=== PATIENT | male | born 1960 | race Caucasian/White ===

== ENCOUNTER 2018-08-18 14:31 | Emergency (ER) | payer OTHER ==
[~2018-08-18] VITALS: Ht 177.8 cm; Wt 93.0 kg
[~2018-08-18 14:31] MED LIST: ACETAMINOPHEN-1 EAC1; AMOXICILLIN875 MG PO; CARAFATE1 GM PO; CEFTIN250 MG PO; CIPROFLOXACIN500 MG PO; CYCLOBENZAPRINE5 MG PO; FLEXERIL10 MG PO; FOLIC ACID-VIT1 EAC1 PO; GABAPENTIN300 MG PO; HYDROCODON-ACE1 EA10 PO; HYDROCODON-ACE1 EA14 PO; HYZAAR 100-251 EACH PO; HYZAAR 50-12.5 T1 EA PO; IBUPROFEN600 MG PO; IBUPROFEN800 MG PO; KETOROLAC TROME10 MG PO; LISINOPRIL10 MG PO; LORAZEPAM1 MG PO; LYRICA100 MG PO; MEDROL4 MG PO; NAPROSYN500 MG PO; NAPROXEN500 MG PO; NEURONTIN100 MG PO; NICOTINE PATCH1 EAC1 TD; NORCO 5-325 TA1 EACH PO; OMEPRAZOLE20 MG PO; OXYCODONE HCL5 M1 PO; OXYCODONE HCL5 MG PO; PEPCID20 MG PO; PEPCID40 MG PO; PERCOCET 7.5-31 EACH PO; PREDNISONE20 MG PO; PRILOSEC20 MG PO; PROMETHAZINE12.5 M1 PO; PROTONIX40 MG PO; SUCRALFATE1 GM PO; TRAMADOL HCL50 MG PO; ULTRAM50 MG PO; VENTOLIN HFA18 GM INH; VISTARIL25 MG PO; XANAX1 MG PO; ZOFRAN ODT4 MG PO; ZOFRAN ODT8 MG SL; ZOFRAN4 MG PO
[2018-08-18] MEDS ORDERED: ZITHROMAX250 MG PO (14:49)
--- OUTSIDE RECORDS SUMMARY | 2018-08-18 16:18 | XMS ---
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 Care History Medical/Surgical 06/06/2018 [facility] - PATIENT HAS AN APT TO ESTABLISH CARE WITH DR CALDWELL ON 06/10/18Wednesday - PATIENT CURRENTLY RESIDES AT [facility] FOR TREATMENT AND CHW IS NOT ABLE TO CONTACT PATIENT DURING TREATMENT. - Patient is currently established with [facility]. If patient is seen in the ED during business hours. Please contact CHWs at [facility]. Care Recommendation: This patient has had 5 or more Emergency Department visits in the last 12 months.\T\nbsp; Patient requires education on the scope and purpose of the ED as an acute care provider not a Primary Care Provider and should not be utilized for chronic conditions.\T\nbsp; These are guidelines and the provider should exercise clinical judgment when providing care. 05/16/2018 [facility] - CHW MET WITH PATIENT IN ED ROOM- - CHW PROVIDED EOCIL INFORMATION AND [employer] INFORMATION FOR LUNCH. - CHW DISCUSSED ED UTILIZATION WITH PATIENT. - CHW MADE A REFERRAL TO [facility] 04/21/2018 [facility] - PATIENT HAS NOT SEEN A PROVIDER IN THE CLINIC SINCE 2014 - PLEASE DIRECT PATIENT TO THE WALK IN CLINIC TO ESTABLISH CARE WITH A PCP. - PATIENT DOES NOT HAVE A PCP- CHW IS UNABLE TO CONTACT PATIENT SINCE THERE IS NOT A WORKING NUMBER FOR PATIENT. - NO PCP LETTER SENT TO PATIENT. - PLEASE REFER PATIENT TO THE WALK IN CLINIC TO SET UP WITH A PCP IF PATIENT IS SEEN IN THE ED FOR NON EMERGENT MEDICAL NEEDS. E.D. VISIT COUNT (12 MO.) 10 [facility] TOTAL 10 NOTE: Visits indicate total known visits. ED/UCC VISIT TRACKING (12 MO.) 08/18/2018 14:31 [facility] [place] TYPE: Emergency COMPLAINT: - CHEST PAIN 06/05/2018 16:15 [facility] [place] TYPE: Emergency COMPLAINT: - CHEST PAIN,L ARM NUMBNESS DIAGNOSES: - Other chest pain - Essential (primary) hypertension - Nicotine dependence, unspecified, uncomplicated - Allergy to seafood - Allergy to other foods - Other salvage determiner (current) drug therapy - Other chest pain - Precordial pain 05/29/2018 11:34 [facility] [place] TYPE: Emergency COMPLAINT: - ABD PAIN DIAGNOSES: - Unspecified abdominal pain - Allergy to seafood - Essential (primary) hypertension - Nicotine dependence, unspecified, uncomplicated 05/17/2018 21:40 [facility] [place] TYPE: Emergency COMPLAINT: - BLOOD IN URINE DIAGNOSES: - Nausea with vomiting, unspecified - Epigastric pain - Alcohol abuse with intoxication, unspecified - Blood alcohol level of 240 mg/100 ml or more 05/16/2018 08:51 [facility] [place] TYPE: Emergency COMPLAINT: - KEEPS PASSING OUT DIAGNOSES: - Allergy status to other drugs, medicaments and biological substances status - Allergy to seafood - Allergy status to narcotic agent status - Syncope and collapse - Allergy status to analgesic agent status - Bronchitis, not specified as acute or chronic - Alcohol abuse, uncomplicated - Essential (primary) hypertension - Nicotine dependence, unspecified, uncomplicated 05/15/2018 10:01 [facility] [place] TYPE: Emergency COMPLAINT: - SHORTNESS OF BREATH DIAGNOSES: - Blood alcohol level of 240 mg/100 ml or more - Allergy status to analgesic agent status - Essential (primary) hypertension - Nicotine dependence, unspecified, uncomplicated - Shortness of breath - Contusion of right eyelid and periocular area, initial encounter - Allergy status to other drugs, medicaments and biological substances status - Unspecified injury of head, initial encounter - Allergy status to narcotic agent status - Alcohol abuse with intoxication, unspecified - Fall on same level, unspecified, initial encounter - Allergy to seafood 05/09/2018 20:59 [facility] [place] TYPE: Emergency COMPLAINT: - VOMITING DIAGNOSES: - Acute bronchitis, unspecified - Allergy status to narcotic agent status - Unspecified fall, initial encounter - Essential (primary) hypertension - Allergy status to analgesic agent status - Allergy status to other drugs, medicaments and biological substances status - Nicotine dependence, unspecified, uncomplicated - Contusion of left hip, initial encounter - Allergy to seafood - Cough 05/05/2018 06:15 [facility] TYPE: Emergency COMPLAINT: - ABD PAIN DIAGNOSES: - Alcoholic gastritis without bleeding - Allergy status to other drugs, medicaments and biological substances status - Allergy status to analgesic agent status - Unspecified abdominal pain - Nicotine dependence, unspecified, uncomplicated - Allergy to seafood - Allergy status to narcotic agent status - Essential (primary) hypertension 04/20/2018 09:21 [facility] TYPE: Emergency COMPLAINT: - BACK/NECK PAIN,NON INJURY DIAGNOSES: - Essential (primary) hypertension - Other chronic pain - Low back pain - Allergy status to analgesic agent status - Allergy to seafood - Allergy status to narcotic agent status 04/08/2018 14:[address] [facility] [place] TYPE: Emergency COMPLAINT: - LOW BACK PAIN,NON INJURY DIAGNOSES: - Allergy to seafood - Nicotine dependence, unspecified, uncomplicated - Allergy status to analgesic agent status - Essential (primary) hypertension - Allergy status to narcotic agent status - Allergy status to other drugs, medicaments and biological substances status - Low back pain INPATIENT VISIT TRACKING (12 MO.) No inpatient visits to display in this time frame [email or web address]
[2018-08-18] MEDS ORDERED: PREDNISONE20 MG PO (17:39)
[2018-08-18] MEDS ORDERED: TRAZODONE HCL50 MG PO (17:39)
--- NOTE | 2018-08-19 07:20 | EKG ---
[facility] [address] [place] [address] Signed Sinus tachycardia Rightward axis Borderline ECG When compared with ECG of 05-JUN-2018 16:17, premature ventricular complexes are no longer present Confirmed by KIMBERLY MERIDA MD ([id number]) on 08/19/2018 7:20:01 AM Electronically Signed By: KIMBERLY MERIDA MD 08/19/18 0720 PATIENT NAME: KALIN LOVE RUI Electrocardiogram DATE OF : 60 PHYSICIAN: KIMBERLY MERIDA MD REPORT #: [id number] REPORT IS CONFIDENTIAL AND NOT TO BE RELEASED WITHOUT AUTHORIZATION
== END 2018-08-18 17:50 | disposition home or self-care (01) ==
LOC: ED 14:31
DX: J40 Bronchitis, not specified as acute or chronic (principal); I10 Essential (primary) hypertension; Z86.19 Personal history of other infectious and parasitic diseases; Z87.891 Personal history of nicotine dependence; Z91.018 Allergy to other foods; Z91.013 Allergy to seafood; Z79.899 Other long term (current) drug therapy
CPT/HCPCS: 71046; 80053; 84484; 85025; 93005; 93010; 94640; 99285-25; J7512

== ENCOUNTER 2018-08-28 14:51 | Emergency (ER) | payer OTHER ==
[~2018-08-28] VITALS: Ht 177.8 cm; Wt 93.0 kg
[~2018-08-28 14:51] MED LIST changes: +TRAZODONE HCL50 MG PO; +ZITHROMAX250 MG PO
--- OUTSIDE RECORDS SUMMARY | 2018-08-28 14:54 | XMS ---
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 Care History Medical/Surgical 06/06/2018 [facility] - PATIENT HAS AN APT TO ESTABLISH CARE WITH DR CALDWELL ON 06/10/18Wednesday - PATIENT CURRENTLY RESIDES AT [facility] FOR TREATMENT AND CHW IS NOT ABLE TO CONTACT PATIENT DURING TREATMENT. - Patient is currently established with [facility]. If patient is seen in the ED during business hours. Please contact CHWs at [facility]. Care Recommendation: This patient has had 5 or more Emergency Department visits in the last 12 months.\T\nbsp; Patient requires education on the scope and purpose of the ED as an acute care provider not a Primary Care Provider and should not be utilized for chronic conditions.\T\nbsp; These are guidelines and the provider should exercise clinical judgment when providing care. 05/16/2018 [facility] - CHW MET WITH PATIENT IN ED ROOM- - CHW PROVIDED Purewire[employer] INFORMATION AND [employer] Touch INFORMATION FOR LUNCH. - CHW DISCUSSED ED UTILIZATION WITH PATIENT. - CHW MADE A REFERRAL TO [facility] 04/21/2018 [facility] - PATIENT HAS NOT SEEN A [...] MEDICAL NEEDS. E.D. VISIT COUNT (12 MO.) 11 [facility] TOTAL 11 NOTE: Visits indicate total known visits. 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 - Other chest pain - Personal history of other infectious and parasitic diseases - Allergy to seafood - Allergy to other foods - Personal history of nicotine dependence 06/05/2018 16:15 [facility] TYPE: Emergency COMPLAINT: - CHEST PAIN,L ARM NUMBNESS DIAGNOSES: - Other chest pain - Essential (primary) hypertension - Nicotine dependence, unspecified, uncomplicated - Allergy to seafood - Allergy to other foods - Other snf (current) drug therapy - Other chest pain [...] status to narcotic agent status 04/08/2018 14:15 [facility] [place] TYPE: Emergency COMPLAINT: - LOW BACK [...] visits to display in this time frame [id number]
[2018-08-28] MEDS ORDERED: ECOTRIN325 MG PO (16:13)
[2018-08-28] MEDS ORDERED: HYDROCHLOROTHIA25 MG PO (16:13)
[2018-08-28] MEDS ORDERED: TRAZODONE HCL50 MG PO (16:54)
--- NOTE | 2018-08-29 07:22 | EKG ---
[facility] [address] [place], [place] [address] Signed Normal sinus rhythm Normal ECG When compared with ECG of 18-AUG-2018 14:33, No significant change was found Confirmed by KIMBERLY MERIDA MD ([id number]) on 08/29/2018 7:21:55 AM Electronically Signed By: KIMBERLY MERIDA MD 08/29/18 0722 PATIENT NAME: KALIN LOVE Electrocardiogram DATE OF : 60 PHYSICIAN: KIMBERLY MERIDA MD REPORT #: [id number] REPORT IS CONFIDENTIAL AND NOT TO BE RELEASED WITHOUT AUTHORIZATION
--- NOTE | 2018-08-29 07:22 | EKG ---
[facility] [address] [place], [place] [address] Signed Normal sinus rhythm Normal ECG When compared with ECG of 28-AUG-2018 14:55, (Unconfirmed) No significant change was found Confirmed by KIMBERLY MERIDA MD ([id number]) on 08/29/2018 7:22:14 AM Electronically Signed By: KIMBERLY MERIDA MD 08/29/18 0722 PATIENT NAME: IVANKALIN FABIAN Electrocardiogram DATE OF : 60 PHYSICIAN: KIMBERLY MERIDA MD REPORT #: [id number] REPORT IS CONFIDENTIAL AND NOT TO BE RELEASED WITHOUT AUTHORIZATION
== END 2018-08-28 16:41 | disposition home or self-care (01) ==
LOC: ED 14:51
DX: R07.89 Other chest pain (principal); I10 Essential (primary) hypertension; Z86.19 Personal history of other infectious and parasitic diseases; Z87.891 Personal history of nicotine dependence; Z91.018 Allergy to other foods; Z91.013 Allergy to seafood; Z79.899 Other long term (current) drug therapy
CPT/HCPCS: 71045; 80053; 83880; 84484; 85025; 93005; 93010; 99285-25

== ENCOUNTER 2018-08-31 17:36 | Emergency (ER) | payer OTHER ==
[~2018-08-31] VITALS: Ht 177.8 cm; Wt 93.0 kg
[~2018-08-31 17:36] MED LIST changes: +ECOTRIN325 MG PO; +HYDROCHLOROTHIA25 MG PO
--- OUTSIDE RECORDS SUMMARY | 2018-08-31 17:38 | XMS ---
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 Care History Medical/Surgical 06/06/2018 [facility] - PATIENT HAS AN APT TO ESTABLISH CARE WITH DR CALDWELL ON 06/10/18Wednesday - PATIENT CURRENTLY RESIDES AT [facility] FOR TREATMENT AND CHW IS NOT ABLE TO CONTACT PATIENT DURING TREATMENT. - Patient is currently established with [facility]. If patient is seen in the ED during business hours. Please contact CHWs at [facility]. Care Recommendation: This patient has had 5 or more Emergency Department visits in the last 12 months.\T\nbsp; Patient requires education on the scope and purpose of the ED as an acute care provider not a Primary Care Provider and should not be utilized for chronic conditions.\T\nbsp; These are guidelines and the provider should exercise clinical judgment when providing care. 05/16/2018 [facility] - CHW MET WITH PATIENT IN ED ROOM- - CHW PROVIDED ScifinitiIL INFORMATION AND IM5 INFORMATION FOR LUNCH. - CHW DISCUSSED ED UTILIZATION WITH PATIENT. - CHW MADE A REFERRAL TO [facility] 04/21/2018 [facility] - PATIENT HAS NOT SEEN A PROVIDER [...] MEDICAL NEEDS. E.D. VISIT COUNT (12 MO[address] 12 [facility] TOTAL 12 NOTE: Visits indicate total known visits. ED/UCC VISIT TRACKING (12 MO.) 08/31/2018 17:37 [facility] TYPE: Emergency COMPLAINT: - LOWER BACK PAIN,NON INJURY 08/28/2018 14:51 [facility] TYPE: Emergency COMPLAINT: - CHEST PAIN DIAGNOSES: - Other chest pain - Chest pain, unspecified - Personal history of other infectious and parasitic diseases - Personal history of nicotine dependence - Allergy to other foods - Essential (primary) hypertension - Other jail (current) drug therapy - Allergy to seafood 08/18/2018 14:31 [facility] TYPE: Emergency COMPLAINT: - CHEST PAIN DIAGNOSES: - Essential (primary) hypertension - Bronchitis, not specified as acute or chronic - Other jail (current) drug therapy - Other chest pain [...] - Allergy to other foods - Other jail (current) drug therapy - Other chest pain [...] visits to display in this time frame [id number]
[2018-08-31] MEDS ORDERED: CYCLOBENZAPRINE10 MG PO (21:50)
[2018-08-31] MEDS ORDERED: DICLOFENAC SODI75 MG PO (21:50)
== END 2018-08-31 22:19 | disposition home or self-care (01) ==
LOC: ED 17:36
DX: M54.5 Low back pain (principal); G89.29 Other chronic pain; I10 Essential (primary) hypertension; Z87.891 Personal history of nicotine dependence; Z91.013 Allergy to seafood; Z91.018 Allergy to other foods; Z79.82 Long term (current) use of aspirin; Z79.899 Other long term (current) drug therapy
CPT/HCPCS: 72131; 96372; 99283-25; J1885

== ENCOUNTER 2018-09-13 18:15 | Emergency (ER) | payer OTHER ==
[~2018-09-13] VITALS: Ht 177.8 cm; Wt 93.0 kg
--- OUTSIDE RECORDS SUMMARY | ~2018-09-13 | XMS | Clinical Summary ---
Demographics + + + | Address | [address] | | | [place] [address] | + + + | Home Phone | | + + + | Preferred Language | Unknown | + + + | Marital Status | | + + + | Confucianism Affiliation | 1013 | + + + | Race | Unknown | + + + | Ethnic Group | Unknown | + + + Author + + + | Author | [facility] | | | and [place] | + + + | Organization | [facility] | | | and [place] | + + + | Address | Unknown | + + + | Phone | Unavailable | + + + Support + + +---------+ + | Name | Relationship | Address | Phone | + + +---------+ + | Guillermina Badillo | ECON | Unknown | | + + +---------+ + Care Team Providers + +------+ + | Care Topographical Engineer Name | Role | Phone | + +------+ + | Pcp, Prov Inactive | PP | | + +------+ + Allergies + + + + + + | Active Allergy | Reactions | Severity | Noted | Comments | | | | | Date | | + + + + + + | Codeine | Nausea And Vomiting | Medium | 08/27/19 | | | | | | 13 | | + + + + + + | Fish-Derived | Itching, Rash | Medium | 04/28/20 | | | Products | | | 15 | | + + + + + + | Morphine | Itching | Medium | 08/27/19 | | | | | | 13 | | + + + + + + | Shellfish | Itching, Rash | Low | 04/28/20 | | | | | | 15 | | + + + + + + Current Medications + + +---------+---------+------+------+-------+ | Prescription | Sig. | Disp. | Refills | Star | End | Statu | | | | | | t | Date | s | | | | | | Date | | | + + +---------+---------+------+------+-------+ | aspirin 81 mg | Take 81 mg by mouth | | | | | Activ | | chewable tablet | Daily. | | | | | e | + + +---------+---------+------+------+-------+ | nicotine | Place 1 patch onto | | | | | Activ | | (NICODERM) 21 mg/24 | the skin every 24 | | | | | e | | hr | hours. | | | | | | + + +---------+---------+------+------+-------+ | pregabalin | Take 1 capsule by | 60 | 3 | 12/2 | | Activ | | (LYRICA) 225 MG | mouth 2 times daily. | capsule | | 2/20 | | e | | capsuleIndications: | | | | 15 | | | | Chronic neck pain, | | | | | | | | Cervical radiculitis | | | | | | | + + +---------+---------+------+------+-------+ | ondansetron | Take 1 tablet by | 10 | 0 | 01/3 | | Activ | | (ZOFRAN ODT) 4 mg | mouth every 8 hours | tablet | | 1/20 | | e | | disintegrating | as needed for | | | 16 | | | | tablet | Nausea. | | | | | | + + +---------+---------+------+------+-------+ | DULoxetine | Take 1 capsule by | 30 | 1 | 02/0 | | Activ | | (CYMBALTA) [address] | mouth Daily. | capsule | | 9/20 | | e | | capsuleIndications: | | | | 16 | | | | Degeneration of | | | | | | | | cervical | | | | | | | | intervertebral disc, | | | | | | | | Chronic neck pain | | | | | | | + + +---------+---------+------+------+-------+ | traMADol (ULTRAM) | take 1 tablet by | 90 | 0 | 02/2 | | Activ | | 50 mg tablet | mouth every 8 hours | tablet | | 2/20 | | e | | | if needed for pain | | | 16 | | | | | MUST LAST 30 DAYS | | | | | | + + +---------+---------+------+------+-------+ | baclofen | Take 1 tablet by | 60 | 1 | 02/2 | | Activ | | (LIORESAL) 10 mg | mouth every 8 hours | tablet | | 3/20 | | e | | tabletIndications: | as needed. | | | 16 | | | | Degeneration of | | | | | | | | cervical | | | | | | | | intervertebral disc, | | | | | | | | Back pain, | | | | | | | | unspecified back | | | | | | | | pain laterality, | | | | | | | | unspecified | | | | | | | | location, Chronic | | | | | | | | neck pain | | | | | | | + + +---------+---------+------+------+-------+ | oxyCODONE | Take 0.5-1 tablet | 30 | 0 | 02/2 | | Activ | | (ROXICODONE) 5 mg | daily as needed | tablet | | 3/20 | | e | | tabletIndications: | (must last 1 month. | | | 16 | | | | Degeneration of | Refills only through | | | | | | | cervical | Dr. Vaughn) | | | | | | | intervertebral disc, | | | | | | | | Back pain, | | | | | | | | unspecified back | | | | | | | | pain laterality, | | | | | | | | unspecified | | | | | | | | location, Chronic | | | | | | | | neck pain | | | | | | | + + +---------+---------+------+------+-------+ | melatonin 3 mg | Take 3 mg by mouth | | | | | Activ | | TABS | nightly. | | | | | e | + + +---------+---------+------+------+-------+ Active Problems + + + | Problem | Noted Date | + + + | Chronic tension-type headache, intractable | 07/19/2015 | + + + | Chronic hepatitis C with hepatic coma (HCC) | 06/03/2015 | + + + | History of substance abuse | 06/03/2015 | + + + | Fatty liver | 06/03/2015 | + + + | Chronic headache | 05/06/2015 | + + + | Depression | 04/24/2015 | + + + | Alcoholism (HCC) | 04/24/2015 | + + + | Tobacco abuse | 04/24/2015 | + + + | Chronic neck pain | 04/24/2015 | + + + | Cavitary lesion of lung | 08/30/2012 | + + + | Back pain | 08/26/2012 | + + + | Muscle spasm | 08/26/2012 | + + + | Hepatitis C, chronic (HCC) | 08/26/2012 | + + + | Degeneration of cervical intervertebral disc | 08/26/2012 | + + + | COPD (chronic obstructive pulmonary disease) (HCC) | 08/26/2012 | + + + | Benign essential hypertension | 08/26/2012 | + + + | Pulmonary nodule | 08/26/2012 | + + + | Insomnia | 08/26/2012 | + + + | Chest wall pain | 08/26/2012 | + + + Resolved Problems + + + + | Problem | Noted | Resolved | | | Date | Date | + + + + | Abdominal pain, generalized | 06/03/20 | | | | 15 | 6 | + + + + | Acute URI | 08/27/19 | | | | 13 | 6 | + + + + | Viral infection | 08/27/19 | | | | 13 | 6 | + + + + | Cough | 08/27/19 | | | | 13 | 6 | + + + + Immunizations + + + + | Name | Dates Previously Given | Next Due | + + + + | BCG | 07/04/2012 | | + + + + | INFLUENZA PF 18 Y OR | 06/24/2012 | | | >,TRIVALENT | | | | RECOMBINANT | | | + + + + | INFLUENZA PF | 05/03/2015 | | | QUAD(PED/ADOL/ADULT) | | | | ,PSKT or VIAL | | | + + + + | TDAP, (ADOL/ADULT) | 07/30/2012 | | + + + + Family History + + +------+ + | Medical History | Relation | Name | Comments | + + +------+ + | Asthma | Mother | | | + + +------+ + | COPD | Mother | | | + + +------+ + + +------+ + + | Relation | Name | Status | Comments | + +------+ + + | Brother | | Alive | | + +------+ + + | Brother | | Alive | | + +------+ + + | Child | | Alive | | + +------+ + + | Child | | Alive | | + +------+ + + | Child | | Alive | | + +------+ + + | Child | | Alive | | + +------+ + + | Child | | Alive | | + +------+ + + | Father | | Other | unknown | + +------+ + + | Mother | | | heart disease | | | | (Age | | | | | 72) | | + +------+ + + | Sister | | Alive | | + +------+ + + Social History + + + +--------+ + | Tobacco Use | Types | Packs/Day | Years | Date | | | | | Used | | + + + +--------+ + | Current Every Day | Cigarettes | 0.25 | 41 | 06/21/1973 - | | Smoker | | | | 06/21/2014 | + + + +--------+ + + +---+---+---+ | Smokeless Tobacco: | | | | | Never Used | | | | + +---+---+---+ + + | Tobacco Cessation: Counseling Given: Yes | | Comments: 1 cig daily | + + + + +---------+ + | Alcohol Use | Drinks/We | oz/Week | Comments | | | ek | | | + + +---------+ + | No | 0 | 0.0 | RECOVERING ALCOHOLIC: Quit 03/01/15 | | | Standard | | | | | drinks or | | | | | | | | | | equivalen | | | | | t | | | + + +---------+ + + + + | Sex Assigned at | Date Recorded | | | | + + + | Not on file | | + + + Last Filed Vital Signs + + + + | Vital Sign | Reading | Time Taken | + + + + | Blood Pressure | 132/90 | 08/13/20151550 PST | + + + + | Pulse | 85 | 08/13/20151550 PST | + + + + | Temperature | 36.8 C (98.3 F) | 08/13/20151550 PST | + + + + | Respiratory Rate | 16 | 08/13/20151550 PST | + + + + | Oxygen Saturation | 97% | 08/13/20151550 PST | + + + + | Inhaled Oxygen | - | - | | Concentration | | | + + + + | Weight | 88.9 kg (196 lb) | 08/13/20151550 PST | + + + + | Height | 177.8 cm (5' 10") | 08/13/20151550 PST | + + + + | Body Mass Index | 28.12 | 08/13/20151550 PST | + + + + Plan of Treatment +--------+---------+ + + + | Date | Type | Specialty | Care Team | Description | +--------+---------+ + + + | 09/19/ | Office | | Partha Chauhan, | | | 2019 | Visit | | MD Ricardo [facility] | | | | | | [place] | | | | | | [id number] | | | | | | | | +--------+---------+ + + + + + + + + | Health Maintenance | Due Date | Last Done | Comments | + + + + + | Vaccine: | | | | | Pneumococcal 19-64 | 0 | | | | (PPSV23 only) Medium | | | | | Risk (1 of 1 - | | | | | PPSV23) | | | | + + + + + | Vaccine: Zoster (1 | | | | | of 2) | 1 | | | + + + + + | Vaccine: Influenza | | 05/03/2015, 06/24/2012 | | | (#1) | 8 | | | + + + + + | Vaccine: | | 07/30/2012 | | | Dtap/Tdap/Td (2 - | 3 | | | | Td) | | | | + + + + + | Colorectal Cancer | | 06/04/2015, 06/04/2015 | | | Screening | 5 | | | | (Colonoscopy) | | | | + + + + + | Hepatitis C | Completed | 08/12/2015, 07/19/2015, | | | Screening | | 07/04/2015, Additional history | | | | | exists | | + + + + + Results Not on filefrom Last 3 Months Insurance + +--------+ +--------+ +---------+ | Payer | Benefi | Subscriber | Type | Phone | Address | | | t Plan | ID | | | | | | / | | | | | | | Group | | | | | + +--------+ +--------+ +---------+ | [employer] | COMM | [id number] | [employer] | [phone] | | [employer] HMO | HLTH | | id | [id number] | | | | PLAN | | | | | | | [facility] | | | | | | | [place]PLE | | | | | | | [place] | | | | | | | [place] | | | | | + +--------+ +--------+ +---------+ + +--------+ +--------+ + + | Guarantor Name | Accoun | Relation to | Date | Phone | Billing Address | | | t Type | Patient | of | | | | | | | | | | + +--------+ +--------+ + + | SCOTT LOVE | Person | Self [birth year] Home: | [address] | | | [place] | | [phone] [place] | | | [place] | | | [phone] | + +--------+ +--------+ + +
--- OUTSIDE RECORDS SUMMARY | ~2018-09-13 | XMS | Clinical Summary ---
Demographics + + + | Address | [address] | | | [place] [address] | + + + | Home Phone | | + + + | Preferred Language | Unknown | + + + | Marital Status | | + + + | Restorationist Affiliation | 1013 | + + + | Race | Unknown | + + + | Ethnic Group | Unknown | + + + Author + + + | Author | [facility] | | | and [place] | + + + | Organization | [facility] | | | and [...] Team Providers + +------+ + | Care Metallurgical Engineer Name | Role | Phone | [...] [place] | | | | | | [phone] | | | | | | | [...] | [employer] | COMM | [id number] | [employer] | [phone] | | [...] | | | [place] | | | [phone] | + +--------+ +--------+ + +
[~2018-09-13 18:15] MED LIST changes: +CYCLOBENZAPRINE10 MG PO; +DICLOFENAC SODI75 MG PO
--- OUTSIDE RECORDS SUMMARY | 2018-09-13 18:18 | XMS ---
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 Care History Medical/Surgical 06/06/2018 [facility] - PATIENT HAS AN APT TO ESTABLISH CARE WITH DR CALDWELL ON 06/10/18Wednesday - PATIENT CURRENTLY RESIDES AT [facility] FOR TREATMENT AND CHW IS NOT ABLE TO CONTACT PATIENT DURING TREATMENT. - Patient is currently established with [facility]. If patient is seen in the ED during business hours. Please contact CHWs at [facility]. Care Recommendation: This patient has had 5 or more Emergency Department visits in the last 12 months.\T\nbsp; Patient requires education on the scope and purpose of the ED as an acute care provider not a Primary Care Provider and should not be utilized for chronic conditions.\T\nbsp; These are guidelines and the provider should exercise clinical judgment when providing care. 05/16/2018 [facility] - CHW MET WITH PATIENT IN ED ROOM- - CHW PROVIDED OdeeoIL INFORMATION AND [employer] INFORMATION FOR LUNCH. - CHW DISCUSSED ED UTILIZATION WITH PATIENT. - CHW MADE A REFERRAL TO [facility] 04/21/2018 [facility] - PATIENT HAS NOT SEEN [...] MEDICAL NEEDS. E.D. VISIT COUNT (12 MO.) 13 [facility] TOTAL 13 NOTE: Visits indicate total known visits. ED/UCC VISIT TRACKING (12 MO.) 09/13/2018 18:16 [facility] TYPE: Emergency COMPLAINT: - R SHOULDER PAIN/INJURY 08/31/2018 17:37 [facility] TYPE: Emergency COMPLAINT: - LOWER BACK PAIN,NON INJURY DIAGNOSES: - Essential (primary) hypertension - Allergy to other foods - senior care (current) use of aspirin - Other chcf (current) drug therapy - Dorsalgia, unspecified - Allergy to seafood - Other chronic pain - Personal history of nicotine dependence - Low back pain 08/28/2018 14:51 [facility] [place] TYPE: Emergency COMPLAINT: - CHEST PAIN DIAGNOSES: - Other chest pain - Chest pain, unspecified - Personal history of other infectious and parasitic diseases - Personal history of nicotine dependence - Allergy to other foods - Essential (primary) hypertension - Other chcf (current) drug therapy - Allergy to seafood 08/18/2018 14:31 [facility] [place] TYPE: Emergency COMPLAINT: - CHEST PAIN DIAGNOSES: - Essential (primary) hypertension - Bronchitis, not specified as acute or chronic - Other long term care administrator (current) drug therapy - Other chest pain [...] - Allergy to other foods - Other long term care administrator (current) drug therapy - Other chest pain - Precordial pain 05/29/2018 11:34 [facility] TYPE: Emergency COMPLAINT: - ABD PAIN DIAGNOSES: - Unspecified abdominal pain - Allergy to seafood - Essential (primary) hypertension - Nicotine dependence, unspecified, uncomplicated 05/17/2018 21:40 [facility] [place] TYPE: Emergency COMPLAINT: - BLOOD IN [...] visits to display in this time frame [id number]
== END 2018-09-13 19:11 | disposition left against medical advice (07) ==
LOC: ED 18:15
DX: M25.511 Pain in right shoulder (principal); R07.89 Other chest pain; I10 Essential (primary) hypertension; Z86.19 Personal history of other infectious and parasitic diseases; F17.200 Nicotine dependence, unspecified, uncomplicated; Z79.82 Long term (current) use of aspirin; W19.XXXA Unspecified fall, initial encounter
CPT/HCPCS: 99283

== ENCOUNTER 2019-12-27 20:16 | Emergency (ER) | payer MEDICAID ==
[~2019-12-27] VITALS: Ht 177.8 cm; Wt 88.5 kg
[~2019-12-27 20:16] MED LIST changes: +PROTONIX20 MG PO
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
[2019-12-27] MEDS ORDERED: KEFLEX500 MG PO (22:16)
[2019-12-27] MEDS ORDERED: ULTRAM50 MG PO (22:16)
== END 2019-12-27 22:56 | disposition home or self-care (01) ==
LOC: ED 20:16
DX: T25.222A Burn of second degree of left foot, initial encounter (principal); T25.221A Burn of second degree of right foot, initial encounter; F17.200 Nicotine dependence, unspecified, uncomplicated; Z91.018 Allergy to other foods; Z91.013 Allergy to seafood; Z88.5 Allergy status to narcotic agent; Z59.0 Homelessness; X58.XXXA Exposure to other specified factors, initial encounter
CPT/HCPCS: 99283; A9270